=== PATIENT | male | born 1940 ===

== ENCOUNTER → 2024-04-26 06:17 | Day surgery (SDC) | payer MEDICARE, SELFPAY ==
[2024-04-26 07:43] LABS: Glucose - Point of Care 94 mg/dl (70-99)
== END ==
LOC: GI 06:17
PROVIDERS: ATTENDING PHYSICIAN Internal Medicine Gastroenterology; FAMILY PHYSICIAN Family Medicine
DX: Z12.11 Encounter for screening for malignant neoplasm of colon (principal); D12.0 Benign neoplasm of cecum; N40.2 Nodular prostate without lower urinary tract symptoms; K64.8 Other hemorrhoids; Z98.0 Intestinal bypass and anastomosis status; K57.30 Diverticulosis of large intestine without perforation or abscess without bleeding; Z85.038 Personal history of other malignant neoplasm of large intestine
CPT/HCPCS: 45380; 88305; 82962